=== PATIENT | male | born 1980 | race Caucasian/White ===

== ENCOUNTER 2016-10-09 18:13 | Emergency (ER) | payer OTHER ==
[2016-10-09 18:26] VITALS: BP 135/81; PULSE 80; TEMP 98.1; BMI 23.6
[2016-10-09] MEDS ORDERED: KETOROLAC TROMETHAMINE 60 MG/2 ML VIAL IM ONE (18:32)
[2016-10-09] MEDS ORDERED: guaiFENesin/CODEINE 10 ML UNIT-DOSE CUPS PO ONE (18:33)
[2016-10-09] MEDS ORDERED: diphenhydrAMINE HCL 25 MG CAPSULE (FP) PO ONE ×2 (18:33→18:34)
[2016-10-09] MEDS ORDERED: KETOROLAC TROMETHAMINE 60 MG/2 ML VIAL ONE (18:33)
--- NOTE | 2016-10-09 18:36 | PDOC ---
History of Present Illness - History of Present Illness Initial Comments: 10/09/16 18:38 The patient is a 35 year old male with no past medical hx who presents to the ED complaining of fever, body aches, chills, and a cough for three days. The patient states he has not been able to sleep in three days due to his symptoms. The patient states he has been taking Tylenol and Motrin with no relief of symptoms. He reports his fever has been a 103. He denies getting the flu shot this year. He also reports nasal congestion, chest pain The patient denies SOB, dysuria, frequency, nausea, vomiting, diarrhea Allergies: NKDA Social: No toxic habits reported, employed <Kathernie Cardoso - Last Filed: 10/09/16 18:40> <Sanket Camacho - Last Filed: 10/09/16 19:30> - General Chief Complaint: Cold Symptoms Stated Complaint: cough,throat pain,chest pain,sneezing Time Seen by Provider: 10/09/16 18:27 Past History <Katherine Cardoso - Last Filed: 10/09/16 18:40> - Past Medical History Anemia: No Asthma: No Cancer: No Cardiac Disorders: No CVA: No COPD: No CHF: No Dementia: No Diabetes: No GI Disorders: Yes (stomach ulcer 9 years ago) Disorders: Yes HTN: No Hypercholesterolemia: No Liver Disease: No Seizures: No Thyroid Disease: No - Surgical History Appendectomy: Yes - Immunization History Immunization Up to Date: No - Psycho/Social/Smoking Cessation Hx Anxiety: No Suicidal Ideation: No Smoking History: Never smoked Have you smoked in the past 12 months: No Information on smoking cessation initiated: No Hx Alcohol Use: No Drug/Substance Use Hx: No Substance Use Type: None <Sanket Camacho - Last Filed: 10/09/16 19:30> - Past Medical History Allergies/Adverse Reactions: Allergies Allergy/AdvReac Type Severity Reaction Status Date / Time No Known Allergies Allergy Verified 10/09/16 18:16 Home Medications: Ambulatory Orders Ibuprofen 800 mg PO QID PRN #20 tablet 10/09/16 Promethazine/Phenyleph/Codeine [Phenergan VC+Codeine Syrup] 5 - 10 ml PO TID PRN #120 ml MDD 6 10/09/16 Review of Systems - Review of Systems Able to Perform ROS?: Yes Comments:: 10/09/16 18:39 CONSTITUTIONAL: +Fever, chills, body aches. Absent: diaphoresis, generalized weakness, malaise, loss of appetite HEENT: +Nasal congestion. Absent: throat pain, throat swelling, difficulty swallowing, mouth swelling, ear pain, eye pain, visual Changes CARDIOVASCULAR: +Chest pain. : syncope, palpitations, irregular heart rate, lightheadedness, peripheral edema RESPIRATORY: +Cough. Absent: shortness of breath, dyspnea with exertion, orthopnea, wheezing , stridor, hemoptysis GASTROINTESTINAL: Absent: abdominal pain, abdominal distension, nausea, vomiting, diarrhea, constipation, melena, hematochezia GENITOURINARY: Absent: dysuria, frequency, urgency, hesitancy, hematuria, flank pain, genital pain MUSCULOSKELETAL: Absent: myalgia, arthralgia, joint swelling SKIN: Absent: rash, itching, pallor NEUROLOGIC: Absent: headache, focal weakness or paresthesias, dizziness, unsteady gait, seizure, mental status changes, bladder or bowel incontinence PSYCHIATRIC: Absent: anxiety, depression, suicidal or homicidal ideation, hallucinations. <Katherine Cardoso - Last Filed: 10/09/16 18:40> *Physical Exam - Vital Signs Last Vital Signs Temp Pulse Resp BP Pulse Ox 98.1 F 80 18 135/81 98 10/09/16 18:19 10/09/16 18:19 10/09/16 18:19 10/09/16 18:19 10/09/16 18:19 - Physical Exam Comments: 10/09/16 18:40 GENERAL: Well developed, well nourished. Awake and alert. In no acute distress. HEENT: Normocephalic, atraumatic. PERRLA, EOMI. No conjunctival pallor. Sclera are non- icteric. Moist mucous membranes. Oropharynx is clear. NECK: Supple. Full ROM. No JVD. Carotid pulses 2+ and symmetric, without bruits. No thyromegaly. No lymphadenopathy. CARDIOVASCULAR: Regular rate and rhythm. No murmurs, rubs, or gallops. Distal pulses are 2+ and symmetric. PULMONARY: No evidence of respiratory distress. Lungs clear to auscultation bilaterally. No wheezing, rales or rhonchi. ABDOMINAL: Soft. Non-tender. Non-distended. No rebound or guarding. No organomegaly. Normoactive bowel sounds. MUSCULOSKELETAL Normal range of motion at all joints. No bony deformities or tenderness. No CVA tenderness. EXTREMITIES: No cyanosis. No clubbing. No edema. No calf tenderness. SKIN: Warm and dry. Normal capillary refill. No rashes. No jaundice. NEUROLOGICAL: Alert, awake, appropriate. Cranial nerves 2-12 intact. Normal speech. PSYCHIATRIC: Cooperative. Good eye contact. Appropriate mood and affect. <Katherine Cardoso - Last Filed: 10/09/16 18:40> - Vital Signs Last Vital Signs Temp Pulse Resp BP Pulse Ox 98.1 F 80 18 135/81 98 10/09/16 18:19 10/09/16 18:19 10/09/16 18:19 10/09/16 18:19 10/09/16 18:19 <Sanket Camacho - Last Filed: 10/09/16 19:30> Medical Decision Making - Medical Decision Making 10/09/16 18:34 Patient with flulike symptoms for 3 days. Nasal congestion, sore throat, nonproductive cough, body aches, and fever. Otherwise healthy, no chronic illnesses Physical exam: Alert oriented 3 well-developed well-nourished no acute distress cooperative Afebrile, vital signs stable PERRLA, fundi benign, ENT clear Neck supple without bruit mass or nodes Chest clear with full breath sounds throughout bilaterally, no wheezes rales or rhonchi CV S1 and S2 normal without murmur rub or gallop pulses full and symmetric no JVD or edema Abdomen benign Extremities no CCE Skin clear, no rash, adequate turgor and what mucous membranes Neurological intact, gait stable and unimpaired Impression: Flu Plan: Symptomatic treatment rest and fluids, and follow-up if no improvement. <Sanket Camacho - Last Filed: 10/09/16 19:30> *DC/Admit/Observation/Transfer - Attestations Scribe Attestion: 10/09/16 18:40 Documentation prepared by Katherine Cardoso, acting as medical physiologist for Sanket Olvera MD/. <Katherine Cardoso - Last Filed: 10/09/16 18:40> - Discharge Dispostion Admit: No <Sanket Camacho - Last Filed: 10/09/16 19:30> Diagnosis at time of Disposition: Influenza - Discharge Dispostion Disposition: HOME Condition at time of disposition: Improved - Prescriptions Prescriptions: Ibuprofen 800 mg PO QID PRN #20 tablet PRN Reason: fever, body aches, sore throat Promethazine/Phenyleph/Codeine [Phenergan VC+Codeine Syrup] 5 - 10 ml PO TID PRN #120 ml MDD 6 PRN Reason: Cough - Patient Instructions Printed Discharge Instructions: DI for Viral Upper Respiratory Infection -- Adult - Post Discharge Activity Work/School Note: Back to Work
[2016-10-09] MEDS ORDERED: guaiFENesin/CODEINE 10 ML UNIT-DOSE CUPS ONE (18:40)
== END 2016-10-09 19:34 | disposition home or self-care (01) ==
LOC: FER 18:13
PROC: 3E0233Z Introduction of Anti-inflammatory into Muscle, Percutaneous Approach (ICD-10-PCS; principal; 2016-10-09)
DX: J11.1 Influenza due to unidentified influenza virus with other respiratory manifestations (principal)
CPT/HCPCS: 96372; 99282-25

== ENCOUNTER 2016-10-12 06:52 | Emergency (ER) | payer OTHER ==
[2016-10-12 07:04] VITALS: BP 113/73; PULSE 100; TEMP 98.3; BMI 23.6
--- NOTE | 2016-10-12 07:58 | PDOC ---
History of Present Illness - General Chief Complaint: Cold Symptoms Stated Complaint: SORE THROAT/MALAISE Time Seen by Provider: 10/12/16 07:17 - History of Present Illness Initial Comments: 10/12/16 07:54 35-year-old male with a negative past medical history He is complaining of 5 days of fevers and chills, bodyaches, myalgias, headache , sore throat, cough, and fever to 102-103, and sneezing He did not have the flu shot this year He states that his cough has become productive of yellow sputum He states that he has nasal congestion He denies any vomiting or diarrhea He was seen in the emergency department on 10/19/16, and was treated with a presumptive diagnosis of influenza Tamiflu was not started at this time He states that his symptoms continue, and his cough is now productive of some yellow sputum He denies any abdominal pain or chest pain Remainder the review of systems is negative Past History - Past Medical History Allergies/Adverse Reactions: Allergies Allergy/AdvReac Type Severity Reaction Status Date / Time No Known Allergies Allergy Verified 10/09/16 18:16 Home Medications: Ambulatory Orders Ibuprofen 800 mg PO QID PRN #20 tablet 10/09/16 Promethazine/Phenyleph/Codeine [Phenergan VC+Codeine Syrup] 5 - 10 ml PO TID PRN #120 ml MDD 6 10/09/16 Azithromycin [Zithromax] 250 mg PO UTDICT #6 tab 10/12/16 Anemia: No Asthma: No Cancer: No Cardiac Disorders: No CVA: No COPD: No CHF: No Dementia: No Diabetes: No GI Disorders: Yes (stomach ulcer 9 years ago) Disorders: Yes HTN: No Hypercholesterolemia: No Liver Disease: No Seizures: No Thyroid Disease: No - Surgical History Appendectomy: Yes - Immunization History Immunization Up to Date: No - Psycho/Social/Smoking Cessation Hx Anxiety: No Suicidal Ideation: No Smoking History: Never smoked Have you smoked in the past 12 months: No Hx Alcohol Use: No Drug/Substance Use Hx: No Substance Use Type: None Review of Systems - Review of Systems Able to Perform ROS?: Yes Comments:: 10/12/16 07:56 Review of systems is as per history of present illness and otherwise negative *Physical Exam - Vital Signs Last Vital Signs Temp Pulse Resp BP Pulse Ox 98.3 F 100 H 18 113/73 99 10/12/16 07:01 10/12/16 07:01 10/12/16 07:01 10/12/16 07:01 10/12/16 07:01 - Physical Exam Comments: 10/12/16 07:56 Physical exam Last Vital Signs Temp Pulse Resp BP Pulse Ox 98.3 F 100 H 18 113/73 99 10/12/16 07:01 10/12/16 07:01 10/12/16 07:01 10/12/16 07:01 10/12/16 07:01 GENERAL: The patient is awake, alert, and fully oriented, and in no apparent distress. HEAD: Normal with no signs of trauma. EYES: Sclera anicteric ENT: Throat and pharynx is erythematous, without exudate Uvula is midline NECK: Normal range of motion, supple LUNGS: Breath sounds equal, clear to auscultation bilaterally. No wheezes, and no crackles. HEART: Regular rate and rhythm, normal S1 and S2 without murmur, rub or gallop. ABDOMEN: Soft, nontender, normoactive bowel sounds. No guarding, no rebound. No masses appreciated. NEUROLOGICAL: Cranial nerves II through XII grossly intact. Normal speech, normal gait. Motor 5 out of 5 and equal in the upper and lower extremities bilaterally Grossly nonfocal neurologic exam PSYCH: Normal mood, normal affect. SKIN: Warm, Dry, no rashes ED Treatment Course - ADDITIONAL ORDERS Additional order review: 10/12/16 07:05 Group A Strep Rapid Antigen - Final Throat NEGATIVE FOR THE ANTIGEN OF BETA HEMOLYTIC STREP GROUP A - RADIOLOGY Radiology Studies Ordered: Category Date Time Status CHEST PA & LAT [RAD] Stat Radiology 10/12/16 07:42 Ordered Medical Decision Making - Medical Decision Making 10/12/16 07:58 Most likely influenza-like illness with secondary bronchitis Lungs are clear bilaterally Too late for empirical Tamiflu 10/12/16 09:47 Stat x-ray PA and lateral Patchy airspace opacities/infiltrates in the right upper and mid lung The rest of the lungs are clear Influenza A and B-negative Rapid strep negative Bronchitis versus very early community-acquired pneumonia in healthy 35-year- old with no comorbidities, and negative flu swab Will treat with Zithromax *DC/Admit/Observation/Transfer Diagnosis at time of Disposition: Bronchitis, Influenza-like illness - Discharge Dispostion Disposition: HOME Condition at time of disposition: Stable - Patient Instructions Printed Discharge Instructions: DI for Viral Upper Respiratory Infection -- Adult, Acute Bronchitis Additional Instructions: Rest, increase fluid intake, Tylenol or Motrin for discomfort Zithromax Z-Ozzy (antibiotic) as directed-start tomorrow-as you have been given your first dose here today Followup with your primary care physician in 24-48 hours Return immediately if you worsen in any way Take your medications as directed - Post Discharge Activity Work/School Note: Back to Work
[2016-10-12] MEDS ORDERED: IBUPROFEN 600 MG TABLET (FP) PO ONE ×3 (09:39→10:16)
[2016-10-12] MEDS ORDERED: AZITHROMYCIN 250 MG TABLET (FP) PO ONE (09:49)
[2016-10-12] MEDS ORDERED: AZITHROMYCIN 250 MG TABLET (FP) ONE (10:16)
== END 2016-10-12 10:32 | disposition home or self-care (01) ==
LOC: FER 06:52 → SUPCPDRO 06:52 → FER 10:32
DX: J11.1 Influenza due to unidentified influenza virus with other respiratory manifestations (principal); J40 Bronchitis, not specified as acute or chronic
CPT/HCPCS: 71020-TC; 87070; 87430; 87804; 99282-25

== ENCOUNTER 2016-11-27 13:09 | Emergency (ER) | payer OTHER ==
[2016-11-27] MEDS ORDERED: MAG HYDROX/AL HYDROX/SIMETH 30 ML UNIT-DOSE CUP PO ONE (13:34)
[2016-11-27] MEDS ORDERED: SODIUM CHLORIDE 1,000 ML IV STA (13:34)
[2016-11-27] MEDS ORDERED: FAMOTIDINE 20 MG/50 ML IVPB 50 ML IVPB ONE ×2 (13:34→13:57)
[2016-11-27] MEDS ORDERED: ACETAMINOPHEN 325 MG TABLET (FP) PO ONE (13:34)
--- NOTE | 2016-11-27 13:42 | PDOC ---
History of Present Illness - General Chief Complaint: Pain Stated Complaint: ABD PAIN Time Seen by Provider: 11/27/16 13:13 History Source: Patient Exam Limitations: No Limitations - History of Present Illness Initial Comments: 11/27/16 13:37 36 year old male with past medical history of gastric ulcer presents with RUQ pain x 4 days. The patient reports a gradual, constant, hard to describe RUQ pain with no radiation. No associated nausea, vomiting, diarrhea. No fevers or sick contacts. Denies CP/SOB. Pt had visited his PMD who directed the pt to ER for further evaluation. Denies hx of gallstones. Past History - Past Medical History Allergies/Adverse Reactions: Allergies Allergy/AdvReac Type Severity Reaction Status Date / Time No Known Allergies Allergy Verified 10/09/16 18:16 Home Medications: Ambulatory Orders Ibuprofen 800 mg PO QID PRN #20 tablet 10/09/16 Promethazine/Phenyleph/Codeine [Phenergan VC+Codeine Syrup] 5 - 10 ml PO TID PRN #120 ml MDD 6 10/09/16 Azithromycin [Zithromax] 250 mg PO UTDICT #6 tab 10/12/16 Famotidine [Pepcid] 20 mg PO BID PRN #20 tablet 11/27/16 Mag Hydrox/Al Hydrox/Simeth [Mylanta Suspension -] 30 ml PO Q6H PRN #1 bottle Pantoprazole Sodium [Protonix -] 40 mg PO ONCE #30 tablet.ec 11/27/16 Anemia: No Asthma: No Cancer: No Cardiac Disorders: No CVA: No COPD: No CHF: No Dementia: No Diabetes: No GI Disorders: Yes (stomach ulcer 9 years ago) Disorders: Yes HTN: No Hypercholesterolemia: No Liver Disease: No Seizures: No Thyroid Disease: No - Surgical History Appendectomy: Yes - Immunization History Immunization Up to Date: No - Psycho/Social/Smoking Cessation Hx Anxiety: No Suicidal Ideation: No Smoking History: Never smoked Have you smoked in the past 12 months: No Hx Alcohol Use: No Drug/Substance Use Hx: No Substance Use Type: None Review of Systems - Review of Systems Able to Perform ROS?: Yes Comments:: 11/27/16 13:38 GENERAL/CONSTITUTIONAL: No fever, weakness. HEAD, EYES, EARS, NOSE AND THROAT: No change in vision. No ear pain or discharge. No sore throat. CARDIOVASCULAR: No chest pain or shortness of breath. RESPIRATORY: No cough, wheezing, or hemoptysis. GASTROINTESTINAL: +Abdominal Pain. No nausea, vomiting, diarrhea, or decreased PO intolerance. GENITOURINARY: No dysuria, frequency, or change in urination. MUSCULOSKELETAL: No joint or muscle swelling or pain. No neck or back pain. SKIN: No rash NEUROLOGIC: No headache, vertigo, loss of consciousness, or change in strength/ sensation. ENDOCRINE: No increased thirst. No abnormal weight change. HEMATOLOGIC/LYMPHATIC: No anemia, easy bleeding, or history of blood clots. ALLERGIC/IMMUNOLOGIC: No hives or skin allergy. *Physical Exam - Physical Exam Comments: 11/27/16 13:43 GENERAL: Awake, alert, and fully oriented, in no acute distress. HEAD: No signs of trauma EYES: PERRLA, EOMI, sclera anicteric, conjunctiva clear ENT: Auricles normal inspection, hearing grossly normal, nares patent, oropharynx clear without exudates. NECK: Normal ROM, supple, no lymphadenopathy, JVD, or masses LUNGS: Breath sounds equal, clear to auscultation bilaterally. No wheezes, and no crackles HEART: Regular rate and rhythm, normal S1 and S2, no murmurs, rubs or gallops ABDOMEN: +RUQ tenderness to palpation. Peng sign negative. Soft, normoactive bowel sounds. No guarding, no rebound. No masses EXTREMITIES: Normal range of motion, no edema. No clubbing or cyanosis. No cords, erythema, or tenderness NEUROLOGICAL: Cranial nerves II through XII grossly intact. Normal speech, normal gait SKIN: Warm, Dry, normal turgor, no rashes or lesions noted. ED Treatment Course - LABORATORY CBC & Chemistry Diagram: 11/27/16 13:51 11/27/16 13:50 - RADIOLOGY Radiology Studies Ordered: Category Date Time Status ABDOMEN US -LIMITED [US] Stat Ultrasound 11/27/16 13:34 Ordered Medical Decision Making - Medical Decision Making 11/27/16 13:44 A portion of this note was documented by scribe services under my direction. I have reviewed the details of the note, within reason, and agree with the documentation with the following case summary and management plan written by me. Patient treated in the ED. Nursing notes are reviewed and incorporated into the medical decision-making. Vital signs reviewed. Peripheral IV access obtained by the nurse, laboratory studies are drawn and sent, reviewed and interpreted by myself. 36 year old male presents with RUQ pain. It may possibly be his gastric ulcer, but will r/o biliary pathology. Labs, U/S, GERD meds and reassess. 11/27/16 15:00 CBC, BMP 11/27/16 13:51 11/27/16 13:50 CMP Sodium 137 mmol/L (136-145) 11/27/16 13:50 Potassium 4.5 mmol/L (3.5-5.1) D 11/27/16 13:50 Chloride 103 mmol/L (98-107) 11/27/16 13:50 Carbon Dioxide 30 mmol/L (22-28) H 11/27/16 13:50 Anion Gap 4 (8-16) L 11/27/16 13:50 BUN 16 mg/dl (7-18) 11/27/16 13:50 Creatinine 0.8 mg/dl (0.6-1.3) 11/27/16 13:50 Creat Clearance w eGFR > 60 (>60) 11/27/16 13:50 Random Glucose 92 mg/dl (74-106) 11/27/16 13:50 Calcium 9.6 mg/dl (8.4-10.2) 11/27/16 13:50 Total Bilirubin 0.4 mg/dl (0.2-1.0) D 11/27/16 13:50 AST 18 U/L (10-42) 11/27/16 13:50 ALT 18 U/L (10-40) 11/27/16 13:50 Alkaline Phosphatase 84 U/L (32-92) 11/27/16 13:50 Total Protein 6.9 g/dl (6.4-8.3) 11/27/16 13:50 Albumin 4.5 g/dl (3.5-5.0) 11/27/16 13:50 Lipase 34 U/L (22-51) 11/27/16 13:50 Ultrasound reviewed. No acute findings. Pt reassessed. His pain is improved. I suspect gastritis vs. peptic ulcer. Will initiate protonix. Will d/c on protonix and pepcid. Follow up with DR. Hutton. Pt feels reassured. Return precautions given. *DC/Admit/Observation/Transfer Diagnosis at time of Disposition: Gastritis Qualifiers: Gastritis type: unspecified gastritis Chronicity: acute Gastritis bleeding: without bleeding Qualified Code(s): K29.00 - Acute gastritis without bleeding - Discharge Dispostion Disposition: HOME Condition at time of disposition: Improved Admit: No - Prescriptions Prescriptions: Mag Hydrox/Al Hydrox/Simeth [Mylanta Suspension -] 30 ml PO Q6H PRN #1 bottle PRN Reason: Abdominal Pain/Bloating Famotidine [Pepcid] 20 mg PO BID PRN #20 tablet PRN Reason: Gastritis Pantoprazole Sodium [Protonix -] 40 mg PO ONCE #30 tablet.ec - Referrals Referrals: Silvia Hutton MD [Staff Physician] - - Patient Instructions Printed Discharge Instructions: DI for Gastroesophageal Reflux Disease (GERD) Additional Instructions: Take 40 mg protonix daily. For additional relief, take a tablet of pepcid every 12 hours as needed for pain. You may also take 30 cc of maalox every 6 hours as needed for abdominal pain.
[2016-11-27] MEDS ORDERED: MAG HYDROX/AL HYDROX/SIMETH 30 ML UNIT-DOSE CUP ONE (13:57)
[2016-11-27 14:00] LABS: BASOPHIL 0.9 % (0-2.0); EOSINOPHIL 7.4 % (0-4.5); MCH 28.8 pg (25.7-33.7); MEAN CELL VOLUME 84.8 fl (80-96); MEAN PLT VOLUME 7.9 fl (7.5-11.1); NEUTROPHILS 50.4 % (42.8-82.8); PLATELET COUNT 295 K/MM3 (134-434); RDW 12.1 % (11.9-15.9); WHITE BLOOD COUNT 7.2 K/mm3 (4.0-10.0)
[2016-11-27] MEDS ORDERED: ACETAMINOPHEN 325 MG TABLET (FP) ONE (14:07)
[2016-11-27 14:14] VITALS: BP 109/74; PULSE 64; TEMP 97.8; BMI 23.6
[2016-11-27 14:27] LABS: ALBUMIN 4.5 g/dl (3.5-5.0); ALK PHOS 84 U/L (32-92); ANION GAP 4 (8-16); BILIRUBIN,TOTAL 0.4 mg/dl (0.2-1.0); CALCIUM 9.6 mg/dl (8.4-10.2); CO2 30 mmol/L (22-28); CREATININE 0.8 mg/dl (0.6-1.3); GLUCOSE,RANDOM 92 mg/dl (74-106); SGOT/AST 18 U/L (10-42); SGPT/ALT 18 U/L (10-40); TOT PROT 6.9 g/dl (6.4-8.3)
[2016-11-27] MEDS ORDERED: PANTOPRAZOLE SODIUM 40 MG in SODIUM CHLORIDE 100 ML IVPB ONE (14:59)
[2016-11-27] MEDS ORDERED: PANTOPRAZOLE SODIUM 40 MG VIAL ONE (15:03)
[2016-11-27 16:15] LABS: PH,URINE 6.5 (4.5-8); URINE APPEARANCE Clear; URINE BILIRUBIN Negative (NEGATIVE); URINE BLOOD Negative (NEGATIVE); URINE GLUCOSE (UA) Negative (NEGATIVE); URINE KETONE Negative (NEGATIVE); URINE LEUK ESTERASE Negative (NEGATIVE); URINE NITRITE Negative (NEGATIVE); URINE PROTEIN Negative (NEGATIVE); URINE UROBILINOGEN 0.2 E.U/dl (0.2-1.0)
[2016-11-27 16:19] LABS: URINE COLOR YELLOW
== END 2016-11-27 16:20 | disposition home or self-care (01) ==
LOC: FER 13:09
DX: K29.00 Acute gastritis without bleeding (principal)
CPT/HCPCS: 36415; 76705-TC; 80053; 81003; 83690; 85025; 99283-25

== ENCOUNTER 2019-01-07 16:52 | Emergency (ER) | payer OTHER ==
[2019-01-07 17:01] VITALS: BP 117/74; PULSE 78; TEMP 97.5; BMI 24.0
--- NOTE | 2019-01-07 17:20 | PDOC ---
History of Present Illness - General Chief Complaint: Sore Throat Stated Complaint: sore throat Time Seen by Provider: 01/07/19 17:17 History Source: Patient Exam Limitations: No Limitations - History of Present Illness Initial Comments: 01/07/19 18:12 Patient is a 38M with no significant medical history here today complaining of a sore throat, cough, and sinus pressure for the past four days. Patient is here today with his child who is being evaluated for vomiting. Endorses subjective fever, taking motrin and tylenol. Denies chest pain, shortness of breath, headache, neck pain. Past History - Past Medical History Allergies/Adverse Reactions: Allergies Allergy/AdvReac Type Severity Reaction Status Date / Time No Known Allergies Allergy Verified 01/07/19 16:53 Home Medications: Ambulatory Orders Naproxen [Naprosyn -] 375 mg PO BID PRN #14 tablet 08/10/17 Pseudoephedrine HCl [Sudafed] 60 mg PO QID PRN #32 tablet 08/10/17 Mag Hydrox/Alh/Smc/Dpha/Lido [Magic Mouthwash *Sjr Formula* -] 5 ml MM Q6HPO #1 bottle 01/07/19 Anemia: No Asthma: No Cancer: No Cardiac Disorders: No CVA: No COPD: No CHF: No DVT: No Dementia: No Diabetes: No GI Disorders: Yes (stomach ulcer 9 years ago) Disorders: Yes HTN: No Hypercholesterolemia: No Liver Disease: No Seizures: No Thyroid Disease: No - Surgical History Appendectomy: Yes - Immunization History Immunization Up to Date: No - Suicide/Smoking/Psychosocial Hx Smoking History: Never smoked Have you smoked in the past 12 months: No Information on smoking cessation initiated: No Hx Alcohol Use: No Drug/Substance Use Hx: No Substance Use Type: None Review of Systems - Review of Systems Able to Perform ROS?: Yes Comments:: 01/07/19 18:13 GENERAL/CONSTITUTIONAL: + fever. No weakness. HEAD, EYES, EARS, NOSE AND THROAT: No change in vision. No ear pain or discharge. + sore throat. CARDIOVASCULAR: No chest pain or shortness of breath RESPIRATORY: +cough, no wheezing, or hemoptysis. GASTROINTESTINAL: No nausea, vomiting, diarrhea or constipation. GENITOURINARY: No dysuria, frequency, or change in urination. MUSCULOSKELETAL: No joint or muscle swelling or pain. No neck or back pain. SKIN: No rash NEUROLOGIC: No headache, vertigo, loss of consciousness, or change in strength/ sensation. ALLERGIC/IMMUNOLOGIC: No hives or skin allergy. *Physical Exam - Vital Signs Last Vital Signs Temp Pulse Resp BP Pulse Ox 97.5 F L 78 20 117/74 98 01/07/19 16:52 01/07/19 16:52 01/07/19 16:52 01/07/19 16:52 01/07/19 16:52 - Physical Exam Comments: 01/07/19 18:14 GENERAL: Awake, alert, and fully oriented, in no acute distress HEAD: No signs of trauma, normocephalic, atraumatic EYES: PERRLA, EOMI, sclera anicteric, conjunctiva clear ENT: Auricles normal inspection, hearing grossly normal, nares patent, oropharynx clear without exudates. Moist mucosa. Midline uvula NECK: Normal ROM, supple, no lymphadenopathy, JVD, or masses LUNGS: No distress, speaks full sentences, clear to auscultation bilaterally HEART: Regular rate and rhythm, normal S1 and S2, no murmurs, rubs or gallops, peripheral pulses normal and equal bilaterally. ABDOMEN: Soft, nontender, normoactive bowel sounds. No guarding, no rebound. No masses EXTREMITIES: Normal inspection, Normal range of motion, no edema. No clubbing or cyanosis. NEUROLOGICAL: Cranial nerves II through XII grossly intact. Normal speech, normal gait, no focal sensorimotor deficits SKIN: Warm, Dry, normal turgor, no rashes or lesions noted. Medical Decision Making - Medical Decision Making 01/07/19 18:14 Patient is 38M here today with URI. No needs for antibiotics. Requesting medication for throat, will discharge with lidocaine/benadryl/maalox syrup. No red flags on history of exam. Given return precautions, discharged home. *DC/Admit/Observation/Transfer Diagnosis at time of Disposition: Viral respiratory illness - Discharge Dispostion Disposition: HOME Condition at time of disposition: Good Decision to Admit order: No - Referrals - Patient Instructions Printed Discharge Instructions: DI for Viral Pharyngitis Additional Instructions: Please return if you have any new, worsening or concerning symptoms, especially increasing pain, fever and changes to your voice. Please follow up with your PCP this week. - Post Discharge Activity
[2019-01-07] MEDS ORDERED: ACETAMINOPHEN 500 MG TABLET (FP) PO ONE (17:24)
[2019-01-07] MEDS ORDERED: diphenhydrAMINE HCL 12.5 MG/5 ML UNIT-DOSE CUPS PO ONE (17:25)
[2019-01-07] MEDS ORDERED: MAG HYDROX/AL HYDROX/SIMETH -MYLANTA- ORAL SUSPENSION PO ONE (17:26)
[2019-01-07] MEDS ORDERED: LIDOCAINE VISCOUS 2% ORAL/TOP 20 ML UNIT-DOSE CUP MM ONE (17:38)
== END 2019-01-07 18:18 | disposition home or self-care (01) ==
LOC: FER 16:52
DX: R06.9 Unspecified abnormalities of breathing (principal); B97.89 Other viral agents as the cause of diseases classified elsewhere
CPT/HCPCS: 99281-25

== ENCOUNTER 2019-03-03 16:05 | Emergency (ER) | payer OTHER ==
[2019-03-03 16:27] VITALS: BP 110/76; PULSE 80; TEMP 98.5; BMI 23.5
[2019-03-03] MEDS ORDERED: ACETAMINOPHEN 500 MG TABLET (FP) ONE (16:35)
--- NOTE | 2019-03-03 16:36 | PDOC ---
History of Present Illness - General Chief Complaint: Injury Stated Complaint: LACERATION TO LEFT MID FINGER ,RIGHT THUMB, Time Seen by Provider: 03/03/19 16:15 - History of Present Illness Initial Comments: The pt is a 38M w/ no reported PMH who presents for evaluation after a fall with a knife. He reports cutting his left long finger on accident, falling backwards down 2-3 stairs, cutting his right thumb and falling onto the floor. The pt reports low back pain, b/l knee pain, and left foot pain. He was evaluated at an Urgent Care prior to presentation here, but wanted a second opinion so presented here for evaluation. He states they updated his tetanus and sent an Rx for abx to his pharmacy. He denies LOC, dizziness, changes in vision, sensation, or strength. Denies recent illness 03/03/19 16:34 Past History - Past Medical History Allergies/Adverse Reactions: Allergies Allergy/AdvReac Type Severity Reaction Status Date / Time No Known Allergies Allergy Verified 03/03/19 16:08 Home Medications: Ambulatory Orders NK [No Known Home Medication] 03/03/19 Anemia: No Asthma: No Cancer: No Cardiac Disorders: No CVA: No COPD: No CHF: No DVT: No Dementia: No Diabetes: No GI Disorders: Yes (stomach ulcer 9 years ago) Disorders: Yes HTN: No Hypercholesterolemia: No Liver Disease: No Seizures: No Thyroid Disease: No - Surgical History Appendectomy: Yes - Immunization History Immunization Up to Date: No - Suicide/Smoking/Psychosocial Hx Smoking History: Never smoked Have you smoked in the past 12 months: No Information on smoking cessation initiated: No Hx Alcohol Use: No Drug/Substance Use Hx: No Substance Use Type: None Review of Systems - Review of Systems Able to Perform ROS?: Yes Comments:: GENERAL/CONSTITUTIONAL: No fever or chills. No weakness HEAD, EYES, EARS, NOSE AND THROAT: No change in vision. No ear pain or discharge. No sore throat CARDIOVASCULAR: No chest pain or shortness of breath RESPIRATORY: Denies cough, hemoptysis GASTROINTESTINAL: No nausea, vomiting, diarrhea or constipation GENITOURINARY: No dysuria, frequency, or change in urination MUSCULOSKELETAL: No joint or muscle swelling or pain. No neck or back pain NEUROLOGIC: No headache, vertigo, loss of consciousness, or change in strength/ sensation ENDOCRINE: No increased thirst. No abnormal weight change HEMATOLOGIC/LYMPHATIC: No anemia, easy bleeding, or history of blood clots ALLERGIC/IMMUNOLOGIC: No hives or skin allergy 03/03/19 17:11 Is the patient limited Mauritanian proficient: No *Physical Exam - Vital Signs Last Vital Signs Temp Pulse Resp BP Pulse Ox 98.5 F 80 16 110/76 98 03/03/19 16:08 03/03/19 16:08 03/03/19 16:08 03/03/19 16:08 03/03/19 16:08 - Physical Exam Comments: GENERAL: Awake, alert, and oriented to person/place/time, in no acute distress HEAD: No signs of trauma, normocephalic, atraumatic EYES: PERRLA, EOMI, sclera anicteric, conjunctiva clear ENT: Hearing grossly normal, nares patent, oropharynx clear without exudates. No uvular deviation. Moist mucosa LUNGS: No distress, speaks in full sentences, clear to auscultation bilaterally HEART: Regular rate and rhythm, normal S1 and S2, no murmurs appreciated, peripheral pulses normal and equal bilaterally ABDOMEN: Soft, nontender, normoactive bowel sounds. No guarding, no rebound EXTREMITIES: Left long finger avulsion injury w/o flap or laceration to suture; right thumb small dorsal avulsion injury both w/o hemorrhage NEUROLOGICAL: Cranial nerves II through XII grossly intact. Normal speech, normal gait, no focal sensorimotor deficits SKIN: Wounds as above otherwise warm/dry 03/03/19 17:12 Medical Decision Making - Medical Decision Making The pt is a 38M w/ no reported PMH who presents for evaluation of L long finger wound, R thumb wound, back pain, b/l knee pain, an L foot pain ED Course Tylenol for pain S/p tetanus, abx, and Rx for abx at Urgent Care Plain films of L-S spine and L foot 03/03/19 17:13 XR w/o acute pathology Wounds are superficial and do not require procedural repair Discharge instructions, wound care instruction, and return precautions given Pt in agreement and verbalized understanding Dispo: home 03/03/19 17:40 *DC/Admit/Observation/Transfer Diagnosis at time of Disposition: Left foot pain Back pain Qualifiers: Back pain location: low back pain Chronicity: acute Back pain laterality: bilateral Sciatica presence: without sciatica Qualified Code(s): M54.5 - Low back pain Laceration of left hand Qualifiers: Encounter type: initial encounter Foreign body presence: unspecified Qualified Code(s): S61.412A - Laceration without foreign body of left hand, initial encounter - Discharge Dispostion Disposition: HOME Condition at time of disposition: Stable Decision to Admit order: No - Referrals Referrals: [facility] [place] [facility] [place] [Provider Group] - Patient Instructions Printed Discharge Instructions: Skin Wound Additional Instructions: You were seen in the Emergency Department for evaluation of two finger wounds, back pain, and foot pain. Your imaging was negative for acute findings and your wounds do not require repair to heal. For wound care you may use bacitracin or neosporin. To clean the wound wash with soap and water every day. Pat dry. After the next two days you may leave the wound open to air. Return to the Emergency Department if you develop redness around the wound, increased swelling , fevers, wound drainage, worsening symptoms, change in sensation/strength, or any new/concerning symptoms. For pain you may take Tylenol 650mg every 6 hours and Ibuprofen 600mg every 6-8 hours, alternating them each time. - Post Discharge Activity
[2019-03-03] MEDS ORDERED: ACETAMINOPHEN 500 MG TABLET (FP) PO ONE (16:37)
--- NOTE | 2019-03-03 17:42 | PDOC ---
Attending Attestation - Resident Resident Name: TaraJuvenal hurley - ED Attending Attestation I have performed the following: I have examined & evaluated the patient, The case was reviewed & discussed with the resident, I agree w/resident's findings & plan - HPI HPI: 03/03/19 17:39 healthy 38 y/o M p/w several complains after minor accident today. Pt was cutting fruit, accidentally slipped and cut his fingers, after which point he stepped back and fell down 2 steps, striking his low back. went to urgent care and his hand lacs were evaluated, no sutures but prescribed tetanus and abx, presents here because he is requesting imaging of his back and foot, which was not deemed indicated at the [facility] [place]. no red flags on history - Physicial Exam PE: 03/03/19 17:40 vss very superficial linear lac L 3rd digit dorsal distal phalanx without nail involvement. 2mm abrasion R thumb over IP joint. no deep tissue exposure b/l, 5/ 5 flex/extend at MCP/PIP/DIP. back without sts or bruise, c/o midline ttp but no deformity or step-off head atraumatic L foot ttp along 1st metatarsal, nvi neuro exam normal - Medical Decision Making 03/03/19 17:42 38y/o M with minor injuries after accidental event. abrasions to digits without deep tissue involvement. contusion to low back, neuro nl. L foot sprain, r/o fracture. wound care to finger abrasions, agree no indication for sutures. dT updated at Urgent Care L foot and LS spine xray pain control d/c
== END 2019-03-03 18:21 | disposition home or self-care (01) ==
LOC: FER 16:05
DX: S61.011A Laceration without foreign body of right thumb without damage to nail, initial encounter (principal); M79.672 Pain in left foot; S61.412A Laceration without foreign body of left hand, initial encounter; M54.5 Low back pain; W10.9XXA Fall (on) (from) unspecified stairs and steps, initial encounter; Y93.89 Activity, other specified; Y92.89 Other specified places as the place of occurrence of the external cause
CPT/HCPCS: 72100-TC-FY; 73610-TC-LT-FY; 73630-TC-LT; 99281-25

== ENCOUNTER 2019-08-10 04:39 | Emergency (ER) | payer OTHER ==
[2019-08-10] MEDS ORDERED: METHOCARBAMOL 500 MG TABLET PO ONE (04:42)
[2019-08-10] MEDS ORDERED: LIDOCAINE 5% TOPICAL PATCH TP ONE (04:42)
[2019-08-10] MEDS ORDERED: KETOROLAC TROMETHAMINE 60 MG/2 ML VIAL IM ONE (04:42)
[2019-08-10 04:46] VITALS: BP 110/76; PULSE 84; TEMP 97.7; BMI 23.6
--- NOTE | 2019-08-10 04:47 | PDOC ---
History of Present Illness - General Chief Complaint: Respiratory Stated Complaint: COUGH,SORE THROAT Time Seen by Provider: 08/10/19 04:41 History Source: Patient Exam Limitations: No Limitations - History of Present Illness Timing/Duration: 24 hours Past History - Travel Traveled outside of the country in the last 30 days: No Close contact w/someone who was outside of country & ill: No - Past Medical History Allergies/Adverse Reactions: Allergies Allergy/AdvReac Type Severity Reaction Status Date / Time No Known Allergies Allergy Verified 08/10/19 04:41 Home Medications: Ambulatory Orders Lidocaine 5% Patch [Lidoderm Patch -] 1 patch TP DAILY #30 patch 08/10/19 Methocarbamol [Robaxin -] 500 mg PO TID #30 tablet 08/10/19 Anemia: No Asthma: No Cancer: No Cardiac Disorders: No CVA: No COPD: No CHF: No DVT: No Dementia: No Diabetes: No GI Disorders: Yes (stomach ulcer 9 years ago) Disorders: Yes HTN: No Hypercholesterolemia: No Liver Disease: No Seizures: No Thyroid Disease: No - Surgical History Appendectomy: Yes - Immunization History Immunization Up to Date: No - Psycho Social/Smoking Cessation Hx Smoking History: Never smoked Have you smoked in the past 12 months: No Hx Alcohol Use: No Drug/Substance Use Hx: No Substance Use Type: None Review of Systems - Review of Systems Constitutional: No: Symptoms Reported, See HPI, Chills, Diaphoresis, Fever, Loss of Appetite, Malaise, Night Sweats, Weakness, Weight Stable, Unintentional Wgt. Loss, Unexplained wgt Loss, Other HEENTM: Yes: Throat Pain. No: Symptoms Reported, See HPI, Eye Pain, Blurred Vision, Tearing, Recent change in vision, Double Vision, Cataracts, Ear Pain, Ocular Prothesis, Ear Discharge, Nose Pain, Nose Congestion, Tinnitus, Nose Bleeding, Hearing Loss, Throat Swelling, Mouth Pain, Dental Problems, Difficulty Swallowing, Mouth Swelling, Other Respiratory: Yes: Cough. No: Symptoms reported, See HPI, Orthopnea, Shortness of Breath, SOB with Exertion, SOB at Rest, Stridor, Wheezing, Productive cough, Hemoptysis, Other Cardiac (ROS): No: Symptoms Reported, See HPI, Chest Pain, Edema, Irregular Heart Rate, Lightheadedness, Palpitations, Syncope, Chest Tightness, Other ABD/GI: No: Symptoms Reported, See HPI, Abdominal Distended, Abd. Pain w/ defecation, Blood Streaked Bowels, Constipated, Diarrhea, Difficulty Swallowing , Nausea, Poor Appetite, Poor Fluid Intake, Rectal Bleeding, Vomiting, Indigestion, Abdominal cramping, Tarry Stools, Other : No: Symptoms Reported, See HPI, Burning, Dysuria, Discharge, Frequency, Flank Pain, Hematuria, Incontinence, Pain, Urgency, Testicular Mass, Testicular Swelling, Lesions, Testicular Pain, Other Musculoskeletal: Yes: Back Pain, Muscle Pain. No: Symptoms Reported, See HPI, Gout, Joint Pain, Joint Swelling, Muscle Weakness, Neck Pain, Joint Stiffness, Other Integumentary: No: Symptoms Reported, See HPI, Bruising, Change in Color, Change in Hair/Nails, Dryness, Erythema, Flushing, Lesions, Lumps, Pallor, Pruritus, Rash, Sweating, Other Neurological: No: Symptoms reported, See HPI, Headache, Numbness, Paresthesia, Pre-Existing Deficit, Seizure, Tingling, Tremors, Weakness, Unsteady Gait, Ataxia, Dizziness, Other Psychiatric: No: Anxiety, Depression, Frequent Crying, Stressors, Sleep Pattern Change, Emotional Problems, Mood Swings, Change in Appetite, Other Endocrine: No: Symptoms Reported, See HPI, Excessive Sweating, Flushing, Intolerance to Cold, Intolerance to Heat, Increased Hunger, Increased Thirst, Increased Urine, Unexplained Weight Gain, Unexplained Weight Loss, Change in Weight, Other Hematologic/Lymphatic: No: Symptoms Reported, See HPI, Anemia, Blood Clots, Easy Bleeding, Easy Bruising, Bleeding Diathesis, Lymph Node Abnormalities, Swollen Glands, Other *Physical Exam - Physical Exam General Appearance: Yes: Nourished, Appropriately Dressed, Mild Distress HEENT: positive: EOMI, AMIRAH, Normal ENT Inspection, Normal Voice, Symmetrical, TMs Normal, Pharyngeal Erythema Neck: positive: Trachea midline, Supple Respiratory/Chest: positive: Lungs Clear, Normal Breath Sounds, Other (Pt keeps coughing) Gastrointestinal/Abdominal: positive: Normal Bowel Sounds, Flat, Soft Rectal Exam: positive: deferred Musculoskeletal: positive: Normal Inspection, Muscle Spasm (trapezius spasm). 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, Fully Oriented, Alert, Normal Mood/ Affect, Normal Response, Motor Strength 01/04 Medical Decision Making - Medical Decision Making 08/10/19 05:35 CXR normal Rapid strep pending Flu culture pending Discharge - Discharge Information Problems reviewed: Yes Clinical Impression/Diagnosis: Strep throat Condition: Improved Disposition: HOME - Additional Discharge Information Prescriptions: Lidocaine 5% Patch [Lidoderm Patch -] 1 patch TP DAILY #30 patch Methocarbamol [Robaxin -] 500 mg PO TID #30 tablet - Follow up/Referral Referrals: Silvia Hutton MD [Primary Care Provider] - - Patient Discharge Instructions Patient Printed Discharge Instructions: DI for Strep Throat - Post Discharge Activity Work/Back to School Note: Back to Work
[2019-08-10] MEDS ORDERED: METHOCARBAMOL 500 MG TABLET ONE (04:50)
[2019-08-10] MEDS ORDERED: LIDOCAINE 5% TOPICAL PATCH ONE (04:51)
[2019-08-10] MEDS ORDERED: KETOROLAC TROMETHAMINE 60 MG/2 ML VIAL ONE (04:51)
[2019-08-10] MEDS ORDERED: PENICILLIN G BENZATHINE 1,200,000 UNIT/2 ML PFS IM ONE ×2 (05:48)
[2019-08-10] MEDS ORDERED: LIDOCAINE PATCH REMOVAL MC SCH (22:00)
== END 2019-08-10 06:40 | disposition home or self-care (01) ==
LOC: FER 04:39
PROC: 3E0233Z Introduction of Anti-inflammatory into Muscle, Percutaneous Approach (ICD-10-PCS; principal; 2019-08-10)
PROC: 3E02329 Introduction of Other Anti-infective into Muscle, Percutaneous Approach (ICD-10-PCS; 2019-08-10)
DX: J02.0 Streptococcal pharyngitis (principal)
CPT/HCPCS: 71046-TC-FY; 87804; 87880; 99281-25

== ENCOUNTER 2019-10-26 10:58 | Emergency (ER) | payer OTHER ==
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
[2019-10-26] MEDS ORDERED: IBUPROFEN 600 MG TABLET (FP) PO ONE ×2 (11:02→11:35)
[2019-10-26] MEDS ORDERED: MECLIZINE HCL 25 MG TABLET (FP) PO ONE (11:05)
[2019-10-26] MEDS ORDERED: SODIUM CHLORIDE 0.9% 1000 ML INFUS.BAG IV ONE (11:24)
[2019-10-26] MEDS ORDERED: METOCLOPRAMIDE HCL INJECTION 10 MG/2 ML VIAL IVPUSH ONE (11:24)
[2019-10-26] MEDS ORDERED: METOCLOPRAMIDE HCL INJECTION 10 MG/2 ML VIAL ONE (11:36)
[2019-10-26] MEDS ORDERED: MECLIZINE HCL 25 MG TABLET (FP) ONE (11:36)
[2019-10-26 11:46] VITALS: BMI 23.3
[2019-10-26 12:09] LABS: BASO % 0.4 % (0-2.0); EOS % 3.7 % (0-4.5); HEMOGLOBIN 15.2 GM/dl (11.7-16.9); LYMPH % 19.1 % (8-40); MCH 29.3 pg (25.7-33.7); MCHC 33.8 g/dl (32.0-35.9); MEAN CELL VOLUME 86.8 fl (80-96); MEAN PLT VOLUME 7.8 fl (7.5-11.1); MONO % 14.9 % (3.8-10.2); NEUT % 61.9 % (42.8-82.8); PLATELET COUNT 318 K/MM3 (134-434); RBC 5.18 M/mm3 (4.00-5.60); RDW 11.9 % (11.9-15.9); WHITE BLOOD COUNT 5.9 K/mm3 (4.0-10.8)
[2019-10-26 12:14] LABS: INR 1.27 (0.82-1.09); PROTHROMBIN TIME (PATIENT) 14.2 SEC (10.2-13.0)
[2019-10-26 12:17] LABS: ALBUMIN 4.4 g/dl (3.4-5.0); BILIRUBIN,TOTAL 0.5 mg/dl (0.2-1); CALCIUM 9.3 mg/dl (8.5-10); CREATININE 0.9 mg/dl (0.55-1.3); POTASSIUM 4.1 mmol/L (3.5-5.1); TOT PROT 7.2 g/dl (6.4-8.2)
[2019-10-26] MEDS ORDERED: OSELTAMIVIR PHOSPHATE 75 MG CAPSULE PO ONE (12:21)
[2019-10-26] MEDS ORDERED: OSELTAMIVIR PHOSPHATE 75 MG CAPSULE ONE (12:22)
[2019-10-26 12:37] VITALS: BP 100/64; PULSE 86; TEMP 98.9
--- NOTE | 2019-10-26 12:40 | EKG ---
Test Reason : Blood Pressure : / mmHG Vent. Rate : 093 BPM Atrial Rate : 093 BPM P-R Int : 168 ms QRS Dur : 084 ms QT Int : 360 ms P-R-T Axes : 061 031 027 degrees QTc Int : 447 ms NORMAL SINUS RHYTHM NORMAL ECG WHEN COMPARED WITH ECG OF 10-AUG-2017 07:55, NO SIGNIFICANT CHANGE WAS FOUND Confirmed by Colin Navarro ([id number]) on 10/26/2019 12:40:10 PM Referred By: Travis RUBIO Confirmed By:Colin Navarro
== END 2019-10-26 12:38 | disposition home or self-care (01) ==
LOC: FER 10:58
PROC: 3E033GC Introduction of Other Therapeutic Substance into Peripheral Vein, Percutaneous Approach (ICD-10-PCS; principal; 2019-10-26)
DX: K21.9 Gastro-esophageal reflux disease without esophagitis (principal); K92.9 Disease of digestive system, unspecified
CPT/HCPCS: 36415; 71046-TC-FY; 80053; 82550; 84484; 85025; 85610; 87804; 93005; 99285-25; J7030

== ENCOUNTER 2020-07-13 23:58 | Emergency (ER) | payer OTHER ==
[2020-07-14 00:17] VITALS: BP 110/70; PULSE 73; TEMP 99.2; BMI 23.6
[2020-07-14] MEDS ORDERED: SODIUM CHLORIDE 1,000 ML IV STA (00:40)
[2020-07-14] MEDS ORDERED: KETOROLAC TROMETHAMINE 30 MG/1 ML VIAL IVPUSH ONE (00:41)
[2020-07-14] MEDS ORDERED: KETOROLAC TROMETHAMINE 30 MG/1 ML VIAL ONE (00:42)
[2020-07-14 01:17] LABS: BASO % 0.3 % (0-2.0); EOS % 2.7 % (0-4.5); HEMATOCRIT 42.5 % (35.4-49); LYMPH % 36.4 % (8-40); MCH 28.3 pg (25.7-33.7); MEAN CELL VOLUME 85.7 fl (80-96); MEAN PLT VOLUME 7.6 fl (7.5-11.1); MONO % 7.5 % (3.8-10.2); NEUT % 53.1 % (42.8-82.8); PLATELET COUNT 284 K/MM3 (134-434); RBC 4.97 M/mm3 (4.00-5.60); RDW 13.2 % (11.9-15.9)
[2020-07-14 01:37] LABS: POTASSIUM 3.5 mmol/L (3.5-5.1)
[2020-07-14 01:40] LABS: CALCIUM 8.2 mg/dL (8.5-10.1)
[2020-07-14 01:41] LABS: ALBUMIN 3.8 g/dl (3.4-5.0); BLOOD UREA NITROGEN 13.6 mg/dL (7-18)
[2020-07-14 01:44] LABS: CREATININE 0.7 mg/dL (0.55-1.3)
[2020-07-14 01:45] LABS: BILIRUBIN,TOTAL 0.3 mg/dL (0.2-1)
[2020-07-14 01:46] LABS: TOT PROT 6.4 g/dl (6.4-8.2)
[2020-07-14] MEDS ORDERED: ACETAMINOPHEN INJECTION 100 ML IVPB ONE (02:12)
[2020-07-14] MEDS ORDERED: ACETAMINOPHEN 1000 MG/100 ML VIAL (NON FORMULARY) IVPB ONE (02:19)
== END 2020-07-14 02:50 | disposition home or self-care (01) ==
LOC: FER 23:58
PROC: 3E0333Z Introduction of Anti-inflammatory into Peripheral Vein, Percutaneous Approach (ICD-10-PCS; principal; 2020-07-14)
PROC: 3E0337Z Introduction of Electrolytic and Water Balance Substance into Peripheral Vein, Percutaneous Approach (ICD-10-PCS; 2020-07-14)
PROC: 3E033GC Introduction of Other Therapeutic Substance into Peripheral Vein, Percutaneous Approach (ICD-10-PCS; 2020-07-14)
DX: M26.609 Unspecified temporomandibular joint disorder, unspecified side (principal); R68.84 Jaw pain
CPT/HCPCS: 36415; 70491-TC; 80053; 85025; 99285-25; J0131; Q9967

== ENCOUNTER 2022-10-21 01:26 | Emergency (ER) | payer OTHER ==
[2022-10-21 01:35] VITALS: BP 107/80; PULSE 86; RESP 16; TEMP 98.1; BMI 23.7
[2022-10-21] MEDS ORDERED: AZITHROMYCIN 250 MG TABLET PO ONE (01:49)
[2022-10-21] MEDS ORDERED: AZITHROMYCIN 250 MG TABLET ONE (01:52)
== END 2022-10-21 01:56 | disposition home or self-care (01) ==
LOC: FER 01:26
DX: J18.8 Other pneumonia, unspecified organism (principal)
CPT/HCPCS: 71045-TC-FY; 93005; 99284-25

== ENCOUNTER 2023-08-05 16:05 | Emergency (ER) | payer OTHER ==
[2023-08-05 16:23] VITALS: BP 109/62; PULSE 88; RESP 16; TEMP 97.9; BMI 24.3
[2023-08-05] MEDS ORDERED: ALBUTEROL SO4 2.5/IPRATROPIUM 0.5 INH SOL 3 ML VIAL.NEB. NEB ONE (16:58)
[2023-08-05] MEDS ORDERED: ACETAMINOPHEN 325 MG TABLET (FP) PO ONE (17:12)
[2023-08-05] MEDS ORDERED: AZITHROMYCIN 250 MG TABLET PO ONE (18:52)
[2023-08-05] MEDS ORDERED: AZITHROMYCIN 250 MG TABLET ONE (19:04)
== END 2023-08-05 19:10 | disposition home or self-care (01) ==
LOC: FER 16:05
PROC: 3E0F7GC Introduction of Other Therapeutic Substance into Respiratory Tract, Via Natural or Artificial Opening (ICD-10-PCS; principal; 2023-08-05)
DX: R05.9 Cough, unspecified (principal); R09.81 Nasal congestion; R51.9 Headache, unspecified; J40 Bronchitis, not specified as acute or chronic; Z20.822 Contact with and (suspected) exposure to COVID-19
CPT/HCPCS: 0241U-QW; 71046-TC-FY; 73502-TC-RT-FY; 99284-25